=== PATIENT | female | born 1980 ===

== ENCOUNTER 2017-09-08 13:21 | Emergency (ER) | payer MEDICAID ==
--- NOTE | 2017-09-08 16:52 | RAD ---
PROCEDURE: Left Knee Radiographs. HISTORY: Pain. COMPARISON: None. FINDINGS: BONES: Normal. No fracture. JOINTS: Normal. No osteoarthritis. JOINT EFFUSION: There is a small suprapatellar joint effusion. OTHER FINDINGS: None. IMPRESSION: No acute fracture or dislocation. Small suprapatellar joint effusion.
--- NOTE | 2017-09-08 17:05 | ED PDOC ---
Lower Extremity Pain/Injury Time Seen by Provider: 09/08/17 14:10 Chief Complaint (Nursing): Abdominal Pain Chief Complaint (Provider): left leg pain History Per: Patient History/Exam Limitations: no limitations Onset/Duration Of Symptoms: Days (2x) Current Symptoms Are (Timing): Constant Additional Complaint(s): Kathrin Lazaro, a 37 year old female presents to the ED, complaining to pain of the left knew onset yesterday. Reports she was walking up the stairs and felt pain on her knee. The pain is constant and is radiating throughout her leg. She feels needle-like sensation on her left leg and it was swollen. She placed ice for relief. Denies wearing high heels. PMD: Ghada Fletcher Past Medical History Reviewed: Historical Data, Nursing Documentation, Vital Signs Vital Signs: Last Vital Signs Temp 98.5 F 09/08/17 13:50 Pulse 95 H 09/08/17 13:50 Resp 16 09/08/17 13:50 BP 158/83 H 09/08/17 13:50 Pulse Ox 100 09/08/17 13:50 - Medical History PMH: No Chronic Diseases - Surgical History Surgical History: (3x) - Family History Family History: States: Unknown Family Hx - Social History Current smoker - smoking cessation education provided: Yes - Allergies Allergies/Adverse Reactions: Allergies Allergy/AdvReac Type Severity Reaction Status Date / Time No Known Allergies Allergy Verified 09/08/17 13:50 Review of Systems ROS Statement: Except As Marked, All Systems Reviewed And Found Negative Musculoskeletal: Positive for: Leg Pain (left leg ), Other (left knee pain) Physical Exam - Reviewed Nursing Documentation Reviewed: Yes Vital Signs Reviewed: Yes - Physical Exam Appears: Positive for: Well, Non-toxic, No Acute Distress Head Exam: Positive for: ATRAUMATIC, NORMAL INSPECTION, NORMOCEPHALIC Skin: Positive for: Normal Color, Warm, Dry Eye Exam: Positive for: EOMI, Normal appearance, PERRL ENT: Positive for: Normal ENT Inspection Neck: Positive for: Normal, Painless ROM, Supple. Negative for: Decreased ROM Cardiovascular/Chest: Positive for: Regular Rate, Rhythm. Negative for: Murmur , Bradycardia Respiratory: Positive for: Normal Breath Sounds. Negative for: Accessory Muscle Use, Wheezing, Respiratory Distress Gastrointestinal/Abdominal: Positive for: Normal Exam, Bowel Sounds, Soft. Negative for: Tenderness Back: Positive for: Normal Inspection. Negative for: L CVA Tenderness, R CVA Tenderness Extremity: Positive for: Normal ROM, Other (knees bilateral wnl). Negative for : Tenderness, Pedal Edema, Deformity Neurologic/Psych: Positive for: Alert, Oriented (x3) - ECG O2 Sat by Pulse Oximetry: 100 (RA) Pulse Ox Interpretation: Normal Medical Decision Making Medical Decision Making: Time: 15:44 Initial Plan: knee pain --Motrin 600mg --X-ray --Reevaluation Time: 17:09 FINDINGS: BONES: Normal. No fracture. JOINTS: Normal. No osteoarthritis. JOINT EFFUSION: There is a small suprapatellar joint effusion. OTHER FINDINGS: None. IMPRESSION: No acute fracture or dislocation. Small suprapatellar joint effusion. pt aware of results, the knee flores bandages. explained that need outpt follow up with orthopedist for outpt MRI . pt agreeable to plan Documented by Tej Lockett acting as a scribe for Miller Hightower MD. All medical record entries made by the Scribe were at my direction and personally dictated by me. I have reviewed the chart and agree that the record accurately reflects my personal performance of the history, physical exam, medical decision making, and the department course for this patient. I have also personally directed, reviewed, and agree with the discharge instructions and disposition. Disposition - Clinical Impression Clinical Impression: Knee pain - Patient ED Disposition Is Patient to be Admitted: No Counseled Patient/Family Regarding: Studies Performed, Diagnosis, Need For Followup - Disposition Referrals: [facility] [Outside] Kofi Ryan MD [Medical Doctor] - Disposition: Routine/Home Disposition Time: 16:00 Condition: IMPROVED Additional Instructions: follow up with orthopedic doctor in 1-2 days return to the ED with any worsening or concerning symptoms Instructions: Swollen Knee Joint (ED), Knee Pain (ED) Forms: [employer] (Sinhala)
[2017-09-08 17:20] VITALS: BP 126/78; PULSE 78; RESP 18; TEMP 97.6
[2017-09-14 10:33] VITALS: O2SAT 100
== END 2017-09-08 17:20 | disposition home or self-care (01) ==
LOC: H.ER 13:21
DX: M25.562 Pain in left knee (principal); F17.200 Nicotine dependence, unspecified, uncomplicated